=== PATIENT | female | born 1945 | race Caucasian/White ===

== ENCOUNTER 2017-08-14 11:04 | Outpatient (CLI) | payer MEDICARE, BC ==
[~2017-08-14] VITALS: Ht 152.4 cm; Wt 69.1 kg
--- NOTE | ~2017-08-14 | HEMODYNAMI ---
PATIENT:DORON DAVIES MEDICAL RECORD: [id number] : 49 LOCATION:[facility] ADMISSION DATE: 08/14/17 Generatedon:08/14/201713:36 Patient name: DORON DAVIES Patient #: [id number] SSN: : Date of study: 08/14/2017 Page: Of Hemodynamic Procedure Report Patient Data Patient Demographics Procedure consent was obtained First Name: DORON Gender: Female Last Name: KEKE : 1945 [facility] Initial: CHANDAN Age: 72 year(s) Patient #: [id number] Race: Unknown Additional ID: [id number] Contact details Address: [address] [place] [address] State: [place] City: [place] Zip code: [address] Past Medical History Allergies Allergen Reaction Date Comments Reported Other allergy 08/14/2017 [facility] Admission Admission Data Admission Date: 08/14/2017 Admission Time: 11:04 Admit Source: Other Lab Results Lab Result Date: 08/14/2017 Lab Result Time: 11:45 Biochemistry Name Units Result Min Max BUN mg/dl 18 --(---*)-- 7 18 Creatinine mg/dl 0.9 --(-*--)-- 0.6 1.3 CBC Name Units Result Min Max Hematocrit % 39.4 -*(----)-- 42 54 Hemoglobin g/dl 13.2 -*(----)-- 13.5 17.5 Procedure Procedure Types Cath Procedure Diagnostic Procedure LHC LHC w/Coronaries Procedure Description Procedure Date Procedure Date: 08/14/2017 Procedure Start Time: 13:18 Procedure End Time: 13:34 Procedure Staff Name Function Andrew Huynh MD Performing Physician Chris Drew RT Monitor Pernell Mendoza RT Scrub Yazan Franco RN Nurse Procedure Data Cath Procedure Fluoroscopy Diagnostic fluoroscopy Total fluoroscopy Time: 3 time: 3 min min Diagnostic fluoroscopy Total fluoroscopy dose: dose: 178.81 mGy 178.81 mGy Contrast Material Contrast Material Type Amount (ml) Isovue 300 68 Entry Location Entry Primary Successful Side Size Upsize Upsize Entry Closure Cavazos ccessful Closure Location (Fr) 1 (Fr) 2 (Fr) Remarks Device Remarks Radial Right 6 Fr Mechanical artery Short Compression Estimated blood loss: 10 ml Diagnostic catheters Device Type Used For End Catheter Placement DIAGNOSTIC Xenia 110cm 5 Procedure Fr catheter ([id number]) DIAGNOSTIC AR MOD 5Fr Procedure Catheter ([id number]) Procedure Medications Medication Administration Route Dosage Oxygen etCO2 Nasal cannula 2 l/min Heparin Flush Bag added to field 2 bags (1000units/500ml NS) 0.9% NaCl I.V. 100 ml/hr Radial Cocktail added to field 1 syringe (Verapomil 2mg/Nitro 400mcg/Heparin 1500units) Fentanyl I.V. 50 mcg Versed I.V. 1 mg Fentanyl I.V. 50 mcg Versed I.V. 1 mg Radial Cocktail I.A. 1 syringe (Verapomil 2mg/Nitro 400mcg/Heparin 1500units) Hemodynamics Rest Heart Rate: 77 (bpm) Pressure Samples Time Site Value (mmHg) Purpose Heart Use Rate(bpm) 13:21 LV 75/-3,0 Snapshot 77 13:22 AO 72/42(55) Snapshot 49 Gradients Valve Time Site Site Mean SEP/DFP Peak To Heart Use 1 2 (mmHg) (sec/min) Peak Rate (mmHg) (bpm) Aortic 13:22 LV AO 80 Snapshots Pre Cath Intra NCS Post Cath Vital Signs Time Heart Resp SPO2 etCO2 NIBP (mmHg) Rhythm Pain Sedation Rate (ipm) (%) (mmHg) Status Level (bpm) 13:02:12 48 16 98 34.6 147/74(109) NSR 0 (11) 10(A) , No pain 13:06:20 48 16 100 40.6 125/75(99) NSR 0 (11) 10(A) , No pain 13:10:36 41 15 99 39.8 102/66(80) NSR 0 (11) 10(A) , No pain 13:15:55 41 15 100 39.8 105/51(71) NSR 0 (11) 10(A) , No pain 13:20:15 41 16 98 36.8 95/47(70) NSR 0 (11) 9(A) , No pain 13:24:35 47 17 98 18.8 83/44(61) NSR 0 (11) 9(A) , No pain 13:28:46 47 17 98 42.1 99/52(76) NSR 0 (11) 9(A) , No pain 13:33:02 44 16 99 40.6 103/56(73) NSR 0 (11) 9(A) , No pain Medications Time Medication Route Dose Verified Delivered Reason Notes Effectiveness by by 13:02:17 Oxygen etCO2 2 l/min Andrew Yazan Per Nasal Lino Franco RN physician cannula 13:02:25 Heparin Flush added 2 bags Andrew Yazan used for Bag to Lino Franco RN procedure (1000units/500ml field NS) 13:02:35 0.9% NaCl I.V. 100 Andrew Yazan Per ml/hr Lino Franco RN physician 13:02:44 Radial Cocktail added 1 Andrew Yazan used for (Verapomil to syringe Lino Franco RN procedure 2mg/Nitro field 400mcg/Heparin 1500units) 13:16:16 Fentanyl I.V. 50 mcg Andrew Yazan for sedation Lino Franco RN 13:16:23 Versed I.V. 1 mg Andrew Yazan for sedation Lino Franco RN 13:19:22 Fentanyl I.V. 50 mcg Andrew Yazan for sedation Lnio Franco RN 13:19:27 Versed I.V. 1 mg Andrew Yazan for sedation Lino Franco RN 13:19:38 Radial Cocktail I.A. 1 Andrew Andrew for (Verapomil syringe Lino Huynh MD vasodilation 2mg/Nitro 400mcg/Heparin 1500units) Procedure Log Time Note 12:39:12 Informed consent obtained and on chart 12:39:15 Admit Source: Other 12:39:37 Diagnostic Cath status Elective 12:39:38 Chris VITAL(R) (CV) sent for patient. Start room use. 12:39:39 Time tracking: Regular hours 12:39:43 Plan of Care:Hemodynamics will remain stable., Cardiac rhythm will remain stable., Comfort level will be maintained., Respiratory function will remain adequate., Patient/ family verbilizes understanding of procedure., Procedure tolerated without complication., Recovers from procedure without complications.. 12:40:06 H&P Date Dictated: 07/29/2017 Within 30 days and on chart., H&P Addendum completed by physician on day of procedure. (MUST COMPLETE FOR ALL OUTPATIENTS). 12:42:49 Lab Result : Hemoglobin 13.2 g/dl 12:42:49 Lab Result : Hematocrit 39.4 % 12:42:49 Lab Result : BUN 18 mg/dl 12:42:49 Lab Result : Creatinine 0.9 mg/dl 12:51:05 Patient received from Pre/Post Procedure Room to CCL 3 Alert and oriented. Tansferred to table in Supine position. 12:51:06 Warm blankets applied, and radha hugger turned on for patient comfort. 12:51:07 Correct patient and procedure confirmed by team. 12:51:07 ECG and BP/O2 sat monitors applied to patient. 12:51:08 Pre-procedure instructions explained to patient. 12:51:09 Pre-op teaching completed and patient verbalized understanding. 12:51:10 Family in waiting room. 12:51:11 Patient NPO since Midnight. 12:51:28 Patient allergic to Other allergyPCN, Septra 12:51:36 Is the patient allergic to Iodine/contrast media? No. 13:01:00 Vital chart was started 13:02:17 Oxygen 2 l/min etCO2 Nasal cannula was administered by Yazan Franco RN; Per physician; 13:02:25 Heparin Flush Bag (1000units/500ml NS) 2 bags added to field was administered by Yazan Franco RN; used for procedure; 13:02:35 0.9% NaCl 100 ml/hr I.V. was administered by Yazan Franco RN; Per physician; 13:02:44 Radial Cocktail (Verapomil 2mg/Nitro 400mcg/Heparin 1500units) 1 syringe added to field was administered by Yazan Franco RN; used for procedure; 13:08:57 Is patient on blood thinner?No 13:09:00 Patient diabetic? No. 13:09:03 Patient not . Patient is over age 55. 13:09:05 ----Pre-sedation anethsthesia assessment.---- 13:09:07 Previous problem with sedation/anesthesia? No ? 13:09:09 Snore? Yes 13:09:10 Sleep apnea? Yes 13:09:12 Deviated septum? No 13:09:13 Opens mouth fully? Yes 13:09:14 Sticks out tongue? Yes 13:09:17 Airway obstruction? No ? 13:09:20 Dentures? No ? 13:09:28 Pre procedure: right dorsailis pedis pulse 2+ Normal; easily identifiable; not easily obliterated 13:09:34 Modified Julián's test Ulnar < 7 seconds 13:09:53 Patient pain scale 0/10 Mild back discomfort. 13:10:20 Sheet roll placed under the knees for back relief 13:10:38 IV patent on arrival in left forearm with 0.9% NaCl at [facility]. 13:10:43 Lab results completed and on chart. 13:10:43 Lab results completed and on chart. 13:10:48 Right Radial & Right Groin area was prepped with chlora-prep and draped in sterile fashion 13:10:49 Alarms reviewed by R. N. 13:10:50 Sharps counted by scrub and verified by R.N. 13:11:03 Use device set Radial Dx or PCI 13:11:05 ACIST Syringe (14611) opened to sterile field. 13:11:05 Medline Cath Pack ([id number]) opened to sterile field. 13:11:06 Bag Decanter (2002S) opened to sterile field. 13:11:07 SHEATH 6FR Slender ([id number]) opened to sterile field. 13:11:08 DIAGNOSTIC WIRE .035 260cm J wire (812623) opened to sterile field. 13:11:08 ACIST Hand Control (55170) opened to sterile field. 13:11:09 ACIST Manifold (02812) opened to sterile field. 13:11:10 Tegaderm 4 x 4 (1626W) opened to sterile field. 13:13:53 Physician arrived 13:13:54 --------ALL STOP TIME OUT------ 13:13:55 Final Timeout: patient, procedure, and site verified with staff and physician. All members of the team are in agreement. 13:13:58 Right Radial & Right Groin site verified by team. 13:14:02 Physical assessment completed. ASA score P 2 - A patient with mild systemic disease as per Andrew Huynh MD. 13:14:06 Sedation plan: IV Moderate Sedation Medication:Versed, Fentanyl 13:15:27 Zero performed for pressure channel P1 13:16:16 Fentanyl 50 mcg I.V. was administered by Yazan Franco RN; for sedation; 13:16:23 Versed 1 mg I.V. was administered by Yazan Franco RN; for sedation; 13:17:59 Procedure started. 13:17:59 Full Disclosure recording started 13:18:11 Local anesthetic to right radial artery with Lidocaine 2% by Andrew Huynh MD.INITIAL ACCESS ONLY 13:19:22 Fentanyl 50 mcg I.V. was administered by Yazan Franco RN; for sedation; 13:19:27 Versed 1 mg I.V. was administered by Yazan Franco RN; for sedation; 13:19:38 Radial Cocktail (Verapomil 2mg/Nitro 400mcg/Heparin 1500units) 1 syringe I.A. was administered by Andrew Huynh MD; for vasodilation; 13:20:01 A 6 Fr Short sheath was inserted into the Right Radial artery 13:20:23 A DIAGNOSTIC Xenia 110cm 5 Fr catheter (116915) was advanced over the wire and used for Procedure. 13:22:01 LV hemodynamics recorded. 13:22:04 LV gram done using COLLAZO 13:22:09 EF : 60 % 13:23:20 LCA angiography performed. 13:25:52 Catheter removed. unable to cannulate vessel. 13:26:23 A DIAGNOSTIC AR MOD 5Fr Catheter ([id number]) was advanced over the wire and used for Procedure. 13:27:09 RCA angiography performed. 13:28:02 TR BAND Standard ([id number]) opened to sterile field. 13:28:59 Catheter removed. 13:29:22 Sheath removed intact; hemostasis achieved with Mechanical Compression to the Right Radial artery. 13:29:25 Procedure ended.(Physican Out) 13:30:15 Fluoroscopy time 03.00 minutes. 13:30:24 Fluoroscopy dose: 178.81 mGy 13:30:24 Flurop Dose total: 178.81 13:31:04 Contrast amount:Isovue 300 68ml. 13:31:08 Sharps counted by scrub and verified by R.N. 13:32:20 TR band inflated with 12cc of air. 13:32:26 Insertion/operative site no bleeding no hematoma. 13:33:19 Post right radial artery:stable 13:33:21 Post Procedure Pulses reassessed and unchanged 13:33:25 Post-procedure physical assessment completed. ASA score P 2 - A patient with mild systemic disease as per Andrew Huynh MD. 13:33:32 Post procedure rhythm: sinus bradycardia 13:33:36 Estimated blood loss: 10 ml 13:33:39 Post procedure instruction explained to patient.Patient verbalizes understanding. 13:33:40 Patient needs reinforcement of post procedure teaching. 13:33:41 Procedure and supply charges have been captured, reviewed, submitted and are correct. 13:34:39 Vital chart was stopped 13:34:40 See physician's report for complete and final results. 13:34:42 Report given to PCU. 13:34:46 Patient transfered to PCU with Stretcher. 13:34:48 Procedure ended. 13:34:48 Full Disclosure recording stopped 13:34:52 End room use (Document Last) Device Usage Item Name Manufacture Quantity Catalog Hospital Part Current Minimal Lot# / Number Charge Number Stock Stock Serial# Code ACIST Acist 1 91982 940352 586807 517814 20 Syringe Medical (64181) Systems Inc Medline Cath Cardinal 1 [id number] 087749 05879 620672 5 Pack Health ([id number]) Bag Decanter Microtek 1 2001S 315455 02709 462977 5 (2001S) Medical Inc. SHEATH 6FR Terumo 1 [id number] 493696 377651 499430 40 Slender ([id number]) DIAGNOSTIC St Srikanth 1 468645 719029 634592 084940 30 WIRE .035 260cm J wire (954712) ACIST Hand Acist 1 53660 688805 352858 616484 5 Control Medical (08298) Systems Inc ACIST Acist 1 02619 182889 543220 190567 5 Manifold Medical (71891) Systems Inc Tegaderm 4 x 3M 1 1626W 660565 970351 299822 5 4 (1626W) DIAGNOSTIC Terumo 1 40-0003 300770 859840 686587 5 Xenia 110cm 5 Fr catheter (476994) DIAGNOSTIC Cardinal 1 [id number] 264294 198019 479529 15 AR MOD 5Fr Health Catheter (560018W) TR BAND Terumo 1 [id number] 380314 714019 378000 40 Standard ([id number]) Signature Audit [place] Stage Time Signature Unsigned Intra-Procedure 08/14/2017 Chris Drew 1:36:08 PM RT(R) (CV) Signatures Monitor : Chris Drew RT Signature : Date : Time : [place] [id number] [place] [address]
[2017-08-14] MEDS ORDERED: CELEXA20 MG PO (11:26)
[2017-08-14] MEDS ORDERED: ZIAC 10-6.25 MG1 TAB PO (11:26)
[2017-08-14] MEDS ORDERED: KLONOPIN0.5 MG PO (11:27)
[2017-08-14] MEDS ORDERED: COZAAR100 MG PO (11:27)
[2017-08-14] MEDS ORDERED: ZEBETA10 MG PO (11:27)
[2017-08-14] MEDS ORDERED: ULTRAM50 MG PO (11:28)
[2017-08-14] MEDS ORDERED: HCTZ25 MG PO (11:28)
[2017-08-14] MEDS ORDERED: VITAMIN B-122500 MCG PO (11:29)
[2017-08-14] MEDS ORDERED: ASPIRIN325 MG PO (11:29)
[2017-08-14] MEDS ORDERED: FEMARA2.5 MG PO (11:29)
[2017-08-14] MEDS ORDERED: POTASSIUM CHLO10 ME1 PO (11:30)
[2017-08-14 11:40] VITALS: BP 123/59; Ht 152.4 cm; Wt 69.1 kg
[2017-08-14 11:53] LABS: BASOPHILS 0.5 % (0-2); EOSINOPHILS 1.9 % (0-7); HEMATOCRIT 39.4 % (36.0-48.0); HEMOGLOBIN 13.2 g/dL (12-16); IMMATURE GRANULOCYTES 0.2 % (0-5); MCH 31.9 pg (26.0-34.0); MCHC 33.5 g/dL (31.0-37.0); MCV 95.2 fL (80.0-100.0); MEAN PLATELET VOLUME 9.6 fL (7.4-10.4); MONOCYTES 8.2 % (2-11); NEUTROPHILS 60.2 % (40-80); PLATELET COUNT 185 10x3/uL (130-400); RBC 4.14 10x6/uL (4.00-5.40); RDW 13.1 % (11.5-14.5); WBC 5.8 10x3/uL (4.8-10.8)
[2017-08-14 12:07] LABS: ANION GAP 10.6 mmol/L (8-16); CALCIUM 10.2 mg/dL (8.5-10.1); CARBON DIOXIDE 29.4 mmol/L (21.0-32.0); CREATININE - SERUM 0.9 mg/dL (0.6-1.3)
== END 2017-08-14 15:45 | disposition home or self-care (01) ==
LOC: D.CATH 11:04
PROVIDERS: Internal Medicine Cardiovascular Disease
DX: I20.9 Angina pectoris, unspecified (principal); R00.1 Bradycardia, unspecified; I10 Essential (primary) hypertension; R94.30 Abnormal result of cardiovascular function study, unspecified; Z01.812 Encounter for preprocedural laboratory examination

== ENCOUNTER → 2018-02-17 14:01 | Outpatient (CLI) | payer MEDICARE, BC ==
[2017-08-14 11:40] VITALS: BMI 29.7
[~2018-02-17 14:01] MED LIST: ASPIRIN325 MG PO; CELEXA20 MG PO; COZAAR100 MG PO; FEMARA2.5 MG PO; HCTZ25 MG PO; KLONOPIN0.5 MG PO; POTASSIUM CHLO10 ME1 PO; ULTRAM50 MG PO; VITAMIN B-122500 MCG PO; ZEBETA10 MG PO; ZIAC 10-6.25 MG1 TAB PO
== END | disposition home or self-care (01) ==
LOC: D.CT 14:01
DX: M54.5 Low back pain (principal)